=== PATIENT | male | born 1970 | race Caucasian/White ===

== ENCOUNTER 2018-02-25 08:56 | Emergency (ER) | payer BC, OTHER ==
[~2018-02-25] VITALS: Ht 182.9 cm; Wt 204.1 kg
[~2018-02-25 08:56] MED LIST: AMLO10TA PO; LISI-420 PO; ORE25 PO
[2018-02-25 08:59] VITALS: BP 132/98
[2018-02-25] MEDS ORDERED: TETRACAINE HCL/PF 0.5% OPTH 4 ML BTL OP ONE (09:10)
[2018-02-25] MEDS ORDERED: FLUORESCEIN OPTH STRIP 0.6 MG OP ONE (09:10)
--- NOTE | 2018-02-25 09:14 | NUR ---
PATIENT PRESENTS TO ED WITH OS C/O NEEDLE LIKE PAIN X THIS AM WITHOUT INJURY/TRAUMA . PT STATES . DENIES N/V/D; SKIN IS PINK/WARM/DRY; AAOX4 WITH EVEN AND STEADY GAIT; PATIENT STATES PAIN OF 6/10 AT THIS TIME; VSS; PATIENT POSITIONED FOR COMFORT; HOB ELEVATED; BEDRAILS UP X2; BED DOWN. ER MD MADE AWARE OF PT STATUS.
[2018-02-25] MEDS ORDERED: FLUORESCEIN OPTH STRIP 0.6 MG ONE (09:16)
--- NOTE | 2018-02-25 09:23 | NUR ---
TONOMETER AT BEDSIDE
[2018-02-25 09:53] VITALS: BP 128/92
--- NOTE | 2018-02-25 09:53 | NUR ---
Patient discharged with v/s stable. Written and verbal after care instructions given and explained. Patient verbalized understanding. Ambulatory with steady gait. All questions addressed prior to discharge. Pt. made appointment with Opthalmologist per Dr Mora.
== END 2018-02-25 09:53 | disposition home or self-care (01) ==
LOC: MED 08:56
DX: H15.002 Unspecified scleritis, left eye (principal); I10 Essential (primary) hypertension
CPT/HCPCS: 99282; 99283

== ENCOUNTER 2018-10-10 17:48 | Emergency (ER) | payer BC ==
[~2018-10-10] VITALS: Ht 182.9 cm; Wt 209.1 kg
[2018-10-10 17:59] VITALS: BP 154/111
--- NOTE | 2018-10-10 18:15 | NUR ---
BIB SELF. STATES HE HAS HAD NUMBNESS AND TINGLING IN HIS LET ARM FOR 1.5 HOURS. DENIES ANY OTHER SYMPTOMS. NEURO ASSESSMENT NORMAL. PATIENT ALERT AND ORIENTED, ANSWERING QUESTIONS APPROPRIATLY.
[2018-10-10 18:55] LABS: BASOPHILS % (AUTO) 0.5 % (0.0-2.0); EOSINOPHILS % (AUTO) 0.6 % (0.0-4.0); HEMATOCRIT 39.8 % (36-52); HEMOGLOBIN 12.7 g/dL (12.0-18.0); LYMPHOCYTES # (AUTO) 1.7 K/uL (2.0-11.5); LYMPHOCYTES % (AUTO) 22.8 % (20.5-51.1); MEAN CORPUSCULAR HEMOGLOBIN 25 pg (27-31); MEAN CORPUSCULAR HGB CONC 32 g/dL (33-37); MEAN CORPUSCULAR VOLUME 78.3 fL (80-94); MONOCYTES # (AUTO) 0.8 K/uL (0.8-1.0); MONOCYTES % (AUTO) 10.6 % (1.7-9.3); NEUTROPHILS # (AUTO) 4.8 K/uL (1.8-7.7); NEUTROPHILS % (AUTO) 65.5 % (42.2-75.2); PLATELET COUNT (AUTO) 165 K/uL (140-450); RED BLOOD CELL COUNT(AUTO) 5.08 MIL/uL (4.20-6.10); RED CELL DISTRIBUTION WIDTH 19.3 % (11.6-13.7); WHITE BLOOD COUNT (AUTO) 7.4 K/uL (4.8-10.8)
[2018-10-10 19:10] LABS: ANION GAP 11.4 (8-16); CARBON DIOXIDE 29.2 mmol/L (21-32); CREATININE 1.4 mg/dL (0.7-1.3); POTASSIUM 3.6 mmol/L (3.5-5.1)
--- NOTE | 2018-10-10 19:10 | NUR ---
ASSUMED CARE OF PT FROM TOMYM FLORES
[2018-10-10 19:15] LABS: ALBUMIN 3.5 g/dL (3.4-5.0); TOTAL BILIRUBIN 0.4 mg/dL (0.0-1.0)
--- NOTE | 2018-10-10 19:39 | NUR ---
Dr. Bowman evaluating patient at bedside.
[2018-10-10 20:16] VITALS: BP 154/111
--- NOTE | 2018-10-10 20:17 | NUR ---
Patient discharged with v/s stable. Written and verbal after care instructions given and explained. Patient verbalized understanding. Ambulatory with steady gait. All questions addressed prior to discharge. Advised to follow up with PMD. PT LEFT W OUT DISCHARGE INSTRUCTIONS
== END 2018-10-10 20:17 | disposition home or self-care (01) ==
LOC: MED 17:48
DX: M79.602 Pain in left arm (principal); R20.0 Anesthesia of skin; I10 Essential (primary) hypertension; Z98.890 Other specified postprocedural states; Z79.899 Other long term (current) drug therapy
CPT/HCPCS: 36415; 80053; 85025; 93005; 99284

== ENCOUNTER 2018-12-09 19:10 | Emergency (ER) | payer BC ==
[~2018-12-09] VITALS: Ht 182.9 cm; Wt 202.3 kg
[2018-12-09 19:11] VITALS: BP 181/127
--- NOTE | 2018-12-09 19:22 | NUR ---
PATIENT AMB TO BED 9.
--- NOTE | 2018-12-09 19:36 | NUR ---
BIB SELF WITH C/O PAIN IN LEFT LOWER LIMB. SCAB NOTED, WITH THIN YELLOW DISCHARGE. WARM TO TOUCH. STATES PAIN 10/10. STATES HE WAS DX WITH CELLULITIS AND FINISHED HIS ABX BUT CONTINUES TO HAVE PAIN. MINIMAL SWELLING.
--- NOTE | 2018-12-09 19:38 | NUR ---
DR CALL AT BEDSIDE.
[2018-12-09 20:03] VITALS: BP 168/98
--- NOTE | 2018-12-09 20:03 | NUR ---
Patient discharged with v/s stable. Written and verbal after care instructions given and explained. Patient alert, oriented and verbalized understanding of instructions. Ambulatory with steady gait. All questions addressed prior to discharge. ID band removed. Patient advised to follow up with PMD. Rx of BACTRIM, MOTRIN, TRAMADOL given. Patient educated on indication of medication including possible reaction and side effects. Opportunity to ask questions provided and answered.
== END 2018-12-09 20:03 | disposition home or self-care (01) ==
LOC: MED 19:10
DX: L03.116 Cellulitis of left lower limb (principal); I10 Essential (primary) hypertension; Z79.899 Other long term (current) drug therapy
CPT/HCPCS: 99283

== ENCOUNTER 2019-08-20 06:56 | Inpatient (IN) | payer BC ==
[~2019-08-20] VITALS: Ht 182.9 cm; Wt 92.5 kg
[2019-08-20 07:04] VITALS: BP 246/143
--- NOTE | 2019-08-20 07:04 | NUR ---
PT TAKEN TO BED 4
--- NOTE | 2019-08-20 07:10 | NUR ---
CHEST PAIN AND SOB FOR 3 DAYS, ON AND OFF, AND AT OOHOUR IT WAS WORST PAIN AT 10/10 NON RADIATING .PT AWAKE , ALERT ,AFEBRILE, AMBULATORY WITH STEADY GAIT. SCE ,CBS . DENIES N/V . PMHX HTN. MEDS TAKEN.
--- NOTE | 2019-08-20 07:15 | NUR ---
DR CALL AT BEDSIDE [id number] PT.
[2019-08-20] MEDS ORDERED: FUROSEMIDE 40 MG/4 ML VIAL IVP ONE (07:25)
[2019-08-20] MEDS ORDERED: NITROGLYCERIN 0.4 MG TAB SL ONE (07:25)
[2019-08-20] MEDS ORDERED: hydrALAZINE 20 MG/ML VIAL IVP ONE (07:25)
--- NOTE | 2019-08-20 07:30 | NUR ---
XRAY AT BEDSIDE.
--- NOTE | 2019-08-20 07:30 | NUR ---
EKG DUPLICATE ORDER WAS PLACED. VERIFIED WITH
--- NOTE | 2019-08-20 07:48 | NUR ---
DR CALL AT BEDSIDE.
[2019-08-20] MEDS ORDERED: KETOROLAC 15 MG/ML VIAL IVP ONE (07:55)
[2019-08-20 07:56] LABS: BASOPHILS # (AUTO) 0.1 K/uL (0.00-0.22); BASOPHILS % (AUTO) 0.8 % (0.0-2.0); EOSINOPHILS % (AUTO) 0.4 % (0.0-4.0); HEMATOCRIT 36.4 % (36-52); HEMOGLOBIN 11.5 g/dL (12.0-18.0); LYMPHOCYTES # (AUTO) 2.1 K/uL (2.0-11.5); LYMPHOCYTES % (AUTO) 20.9 % (20.5-51.1); MEAN CORPUSCULAR HEMOGLOBIN 25 pg (27-31); MEAN CORPUSCULAR HGB CONC 32 g/dL (33-37); MEAN CORPUSCULAR VOLUME 78.3 fL (80-94); MONOCYTES # (AUTO) 0.6 K/uL (0.8-1.0); MONOCYTES % (AUTO) 6.3 % (1.7-9.3); NEUTROPHILS # (AUTO) 7.3 K/uL (1.8-7.7); NEUTROPHILS % (AUTO) 71.6 % (42.2-75.2); PLATELET COUNT (AUTO) 158 K/uL (140-450); RED BLOOD CELL COUNT(AUTO) 4.65 MIL/uL (4.20-6.10); RED CELL DISTRIBUTION WIDTH 19.2 % (11.6-13.7); WHITE BLOOD COUNT (AUTO) 10.2 K/uL (4.8-10.8)
[2019-08-20] MEDS: FUROSEMIDE 40 MG/4 ML VIAL IVP SCH ×2 (08:00→12:00)
--- NOTE | 2019-08-20 08:20 | NUR ---
PATIENT REFUSED ABG KIRTI/RN NOTIFIED
--- NOTE | 2019-08-20 08:21 | NUR ---
PT REFUSED ABG. DR CALL AWARE.
[2019-08-20 08:22] LABS: ALBUMIN 3.1 g/dL (3.4-5.0); ANION GAP 8.1 (8-16); CARBON DIOXIDE 30.1 mmol/L (21-32); CREATININE 1.2 mg/dL (0.7-1.3); POTASSIUM 3.2 mmol/L (3.5-5.1); TOTAL BILIRUBIN 0.5 mg/dL (0.0-1.0)
--- NOTE | 2019-08-20 08:28 | NUR ---
PT WENT TO RESTROOM WITH AMBULATORY.
[2019-08-20] MEDS ORDERED: ASPIRIN 81 MG TAB.CHEW PO ONE (08:40)
[2019-08-20] MEDS ORDERED: METO50TE2 PO (09:06)
[2019-08-20] MEDS: NACL 0.9% 1,000 ML IV SCH (09:21)
[2019-08-20] MEDS ORDERED: KETOROLAC 30 MG/ML VIAL IVP PRN (09:25)
[2019-08-20] MEDS ORDERED: MORPHINE SULFATE 2 MG/ML SYR IVP PRN (09:25)
[2019-08-20] MEDS ORDERED: HYDROcodone/APAP 7.5/325 MG 1 TAB PO PRN (09:25)
[2019-08-20] MEDS ORDERED: ONDANSETRON 4 MG/2 ML VIAL IM/IVP PRN (09:25)
[2019-08-20] MEDS ORDERED: ACETAMINOPHEN 325 MG TAB PO PRN (09:25)
[2019-08-20] MEDS ORDERED: POTASSIUM CHLORIDE 10 MEQ TABER PO ONE (09:30)
[2019-08-20] MEDS ORDERED: NITROGLYCERIN 0.4 MG TAB SL PRN (10:00)
[2019-08-20] MEDS ORDERED: ALBUTEROL SULFATE/IPRATROPIU 3 ML SOL IH PRN (10:00)
--- NOTE | 2019-08-20 10:00 | NUR ---
Patient will be admitted to care of DR DELGADO. Admited to tele. Will go to room 111b. Belongings list completed. Report to jose ureña.
[2019-08-20] MEDS ORDERED: POTASSIUM CHLORIDE 10 MEQ TABER PO SCH (10:10)
--- NOTE | 2019-08-20 10:18 | NUR ---
RECEIVED PATIENT FROM ER NURSE. PATIENT IS FULL CODE, NKA. AAOX4, AMBULATORY. IV TO LEFT AC 20G. PATIENT IS ON NASAL CANNULA 3L. NO COMPLAINTS OF PAIN AT THIS TIME. DR HERNANDEZ AT BEDSIDE. WILL REVIEW AND CONTINUE WITH PLAN OF CARE FOR THE DAY.
[2019-08-20] MEDS ORDERED: ENALAPRILAT 2.5 MG/2 ML VIAL IVP PRN (10:25)
[2019-08-20] MEDS ORDERED: HYDR-3233 PO (10:31)
[2019-08-20] MEDS ORDERED: METO-747 PO (10:31)
[2019-08-20] MEDS ORDERED: CHLO25TA33 PO (10:31)
[2019-08-20] MEDS ORDERED: VALS320T2 PO (10:31)
[2019-08-20] MEDS ORDERED: PRED20TA5 PO (10:43)
[2019-08-20] MEDS ORDERED: VALSARTAN 80 MG TAB PO SCH ×2 (10:45→11:17)
[2019-08-20] MEDS ORDERED: METOPROLOL SUCCINATE 50 MG TABER PO SCH ×2 (10:45→11:18)
[2019-08-20] MEDS ORDERED: HEPARIN PER PHARMACY MC PRN (10:45)
[2019-08-20 10:57] LABS: APPEARANCE,URINE CLEAR (CLEAR); BILIRUBIN,URINE NEGATIVE (NEGATIVE); BLOOD, URINE NEGATIVE (NEGATIVE); COLOR,URINE YELLOW (YELLOW); LEUKOCYTE ESTERASE ,URINE NEGATIVE (NEGATIVE); NITRITE, URINE NEGATIVE (NEGATIVE); PH,URINE 6.5 (5.0-9.0); UGLUCOSE NEGATIVE (NEGATIVE)
[2019-08-20 11:03] LABS: BARBITURATE, URINE NEG. ng/ml (NEG <=200); BENZODIAZEPINE, URINE NEG. ng/mL (NEG <=200); CANNABINOID, URINE NEG. ng/mL (NEG <=50); COCAINE, URINE NEG. ng/mL (NEG <=300); OPIATE, URINE NEG. ng/mL (NEG <=2000); PHENCYCLIDINE SCREEN,URINE NEG. ng/mL (NEG <=25)
[2019-08-20] MEDS ORDERED: LORazepam 1 MG TAB PO PRN (11:25)
[2019-08-20 11:27] LABS: RBC,URINE 0-5 /HPF (0-5); WBC,URINE 0-5 /HPF (0-5)
[2019-08-20] MEDS: CHLORTHALIDONE 25MG PO SCH (11:32)
--- NOTE | 2019-08-20 11:32 | NUR ---
ADMINISTERED BLOOD PRESSURE MEDICATION AND KDURR 20 MEQ. PATIENT TOLERATED WELL.
[2019-08-20 11:41] LABS: CHOL/HDL RATIO 2.2 (1-4.5); FREE T4 (FREE THYROXINE) 0.95 ng/dL (0.76-1.46); MAGNESIUM 1.7 mg/dL (1.8-2.4); PHOSPHORUS 3.7 mg/dL (2.5-4.9)
[2019-08-20 11:42] LABS: THYROID STIMULATING HORMONE 5.25 uIU/mL (0.34-3.74)
[2019-08-20] MEDS ORDERED: MULTIVITAMIN-12 10 ML, THIAMINE 100 MG, MAGNESIUM SULFATE 50% 2,000 MG, FOLIC ACID 1 MG... IV SCH ×5 (12:00)
[2019-08-20] MEDS: hydrALAZINE 10 MG TAB PO SCH ×2 (13:11→16:22)
--- NOTE | 2019-08-20 13:15 | NUR ---
BEGAN HEPARIN INFUSION WITH LEX ESTES. GAVE INITIAL BOLUS OF 7500U. PTT TO BE DRAWN AT 1915.
[2019-08-20] MEDS: hePARIN / DEXT 5% PREMIX 250 ML IV SCH ×2 (13:16→20:43)
--- NOTE | 2019-08-20 14:52 | NUR ---
PATIENT RESTING QUIETLY IN BED. HEPARIN INFUSING. NO COMPLAINTS AT THIS TIME
--- NOTE | 2019-08-20 15:12 | NUR ---
PATIENT HAS NEW IV TO LEFT HAND 22G.
[2019-08-20] MEDS ORDERED: MAGNESIUM OXIDE 400 MG TAB PO SCH (15:18)
--- NOTE | 2019-08-20 15:38 | NUR ---
DISCHARGE PLANNIN48 Y/O MALE PATIENT FROM HOME, WHO CAME IN DUE TO CHEST PAIN. PAST MEDICAL HISTORY INCLUDE HTN AND OBESITY. INITIAL DIAGNOSIS OF NSTEMI. CURRENT LABS INCLUDE WBC 10.2, H/H 11.5/36.4, NA/K 139/3.2, TROP 0.081, BNP 308, AST/ALT 55/83. MRSA NARES PENDING. CARDIO CONSULT WITH Norman MCKEON FOR NSTEMI. NEGATIVE HEAD CT ON ADMISSION. DC PLAN TO HOME ONCE STABLE. Addendum: 08/21/19 at 1159 by Sena Aguayo DC PLANNING: SEEN BY DR LINDA Wagner ORDERED ECHO, SERIAL TROPONIN TRENDING AND EKG, HEPARIN DRIP DISCONTINUED AND SUBQ BID . BP STILL UNCONTROLLED CONTINUE IV VASOTEC 5MG EVERY 4 HRS. DC PLAN TO GO HOME WHEN STABLE. Addendum: 08/21/19 at 1608 by Marily Bello RECEIVED A CALL FROM BESSY YATES REVIEW NURSE FROM [facility], STATING THAT WE ARE A NON CONTRACTED FACILITY AND IS REQUESTING TO INFORM THE PATIENT REGARDING THIS. SHE ALSO STATED THAT IF PATIENT NEEDS IS STABLE, PATIENT NEEDS TO BE TRANSFERRED TO A CONTRACTED FACILITY, IF NOT WE CAN SEND CLINICALS FOR THEM TO REVIEW. SHE ALSO PROVIDED ME WITH HER PHONE NUMBER [phone] FOR ANY QUESTIONS. JU CARSON MADE AWARE.
--- NOTE | 2019-08-20 15:42 | NUR ---
PT IS SITTING UP IN CHAIR AT BEDSIDE. PATIENT AWARE OF STRICT I&O. URINAL AT BEDSIDE AND INSTRUCTED PATIENT TO USE IT.
[2019-08-20] MEDS ORDERED: FUROSEMIDE 40 MG/4 ML VIAL IVP SCH (15:55)
[2019-08-20 16:00] VITALS: BP 134/87
[2019-08-20] MEDS ORDERED: MAG SULF 2000 MG/WATER PREMIX 50 ML IV SCH (16:00)
--- NOTE | 2019-08-20 16:26 | NUR ---
ADMINISTERED PM MEDICATION ALONG WITH ATIVAN D/T PATIENT C/O OF FEELING ANXIOUS AND BEING SCARED TO FALL ASLEEP.
--- NOTE | 2019-08-20 19:10 | NUR ---
RECEIVED PATIENT FROM AM SHIFT NURSE DALIA IN STABLE CONDITION. TELE PATIENT SITTING IN BED. IV FLUIDS INFUSING WELL. NO C/O PAIN. NO S/SX ACUTE DISTRESS NOTED. CALL LIGHT WITHIN REACH. WILL CONTINUE TO MONITOR.
[2019-08-20] MEDS: ENALAPRILAT 2.5 MG/2 ML VIAL IVP PRN (19:57)
--- NOTE | 2019-08-20 19:57 | NUR ---
PATIENT'S BP 151/97 HR 77. MEDICATED WITH PRN ENALAPRIL. NO C/O PAIN. PATIENT RESTING IN BED COMFORTABLY. WILL CONTINUE TO MONITOR.
[2019-08-20 20:00] VITALS: BP 151/97
--- NOTE | 2019-08-20 20:43 | NUR ---
PATIENT NEW RESULT PTT 30. FOLLOWED HEPARIN PROTOCOL. BOLUS PATIENT 7500 [place] [address] UNITS [place] 20 ML/HR. NO S/SX ACUTE DISTRESS. NO C/O PAIN. NEXT PTT SCHEDULED AT 0243. CALL LIGHT WITHIN REACH. WILL CONTINUE TO MONITOR.
--- NOTE | 2019-08-20 20:57 | NUR ---
REASSESSED BP 145/83 HR 77. NO C/O PAIN. NO S/SX ACUTE DISTRESS. CALL LIGHT WITHIN REACH. WILL CONTINUE TO MONITOR.
--- NOTE | 2019-08-20 22:50 | NUR ---
MADE ROUNDS. PATIENT ASLEEP. NO C/O PAIN. NO S/SX ACUTE DISTRESS. CALL LIGHT WITHIN REACH .WILL CONTINUE TO MONITOR.
[2019-08-21] VITALS (7 sets, daily range): BP systolic 126–167; BP diastolic 69–188
--- NOTE | 2019-08-21 00:57 | NUR ---
PATIENT CONTINUES IN STABLE CONDITION. ASLEEP, NO C/O PAIN. NO S/SX ACUTE DISTRESS. CALL LIGHT WITHIN REACH. WILL CONTINUE TO MONITOR.
--- NOTE | 2019-08-21 02:19 | NUR ---
MADE ROUNDS. PATIENT IN STABLE CONDITION. NO C/O PAIN. NO S/SX ACUTE DISTRESS. CALL LIGHT WITHIN REACH. WILL CONTINUE TO MONITOR.
--- NOTE | 2019-08-21 02:46 | NUR ---
PATIENT REFUSED PTT LAB DRAW X2. RISKS AND BENEFITS EXPLAINED. MD NOTIFIED. WILL ATTEMPT AGAIN AT 0500. CALL LIGHT WITHIN REACH. WILL CONTINUE TO MONITOR.
[2019-08-21] MEDS: hePARIN / DEXT 5% PREMIX 250 ML IV SCH ×2 (03:59→08:15)
--- NOTE | 2019-08-21 04:20 | NUR ---
MADE ROUNDS. PATIENT ASLEEP. CONTINUES IN STABLE CONDITION. NO S/SX ACUTE DISTRESS. HEPARIN INFUSING WELL. CALL LIGHT WITHIN REACH. WILL CONTINUE TO MONITOR.
[2019-08-21] MEDS: ENALAPRILAT 2.5 MG/2 ML VIAL IVP PRN (05:04)
--- NOTE | 2019-08-21 05:10 | NUR ---
PATIENT'S BP 163/108 HR 76. MEDICATED WITH PRN ENALAPRIL. NO C/O PAIN. PATIENT RESTING IN BED COMFORTABLY. WILL CONTINUE TO MONITOR.
--- NOTE | 2019-08-21 05:27 | NUR ---
LEFT HAND IV INFILTRATED. D/C WITH NO ACTIVE BLEEDING. IV CATHETER INTACT. REINSERTED IV TO LEFT WRIST 24G WITH GOOD BLOOD RETURN. NO S/SX DISTRESS. CALL LIGHT WITHIN REACH. WILL CONTINUE TO MONITOR.
--- NOTE | 2019-08-21 06:04 | NUR ---
REASSESSED BP 140/104 HR 76. PATIENT STATED IT WAS HIS BASELINE. MD MADE AWARE. NO S/SX ACUTE DISTRESS. NO C/O PAIN. CALL LIGHT WITHIN REACH. WILL CONTINUE TO MONITOR.
--- NOTE | 2019-08-21 07:00 | NUR ---
RECEIVED REPORT FROM MANAGER [employer] NURSE. PATIENT IS SLEEPING, VISIBLE CHEST RISE AND FALL. PATIENTS HEPARIN DRIP IS NOW INFUSING AT 20U/HR. FULL CODE, NKA. PATIENT REFUSED MORNING VITALS. WILL REVIEW AND CONTINUE WITH PLAN OF CARE FOR THE DAY.
[2019-08-21 07:09] LABS: ANION GAP 10.1 (8-16); BASOPHILS # (AUTO) 0.1 K/uL (0.00-0.22); BASOPHILS % (AUTO) 0.6 % (0.0-2.0); CARBON DIOXIDE 29.1 mmol/L (21-32); CREATININE 1.5 mg/dL (0.7-1.3); EOSINOPHILS # (AUTO) 0.1 K/uL (0-0.4); EOSINOPHILS % (AUTO) 0.9 % (0.0-4.0); HEMATOCRIT 38.1 % (36-52); HEMOGLOBIN 11.7 g/dL (12.0-18.0); LYMPHOCYTES # (AUTO) 2.3 K/uL (2.0-11.5); LYMPHOCYTES % (AUTO) 23.8 % (20.5-51.1); MEAN CORPUSCULAR HEMOGLOBIN 25 pg (27-31); MEAN CORPUSCULAR HGB CONC 31 g/dL (33-37); MEAN CORPUSCULAR VOLUME 79.4 fL (80-94); MONOCYTES # (AUTO) 0.6 K/uL (0.8-1.0); MONOCYTES % (AUTO) 6.4 % (1.7-9.3); NEUTROPHILS # (AUTO) 6.6 K/uL (1.8-7.7); NEUTROPHILS % (AUTO) 68.3 % (42.2-75.2); PLATELET COUNT (AUTO) 156 K/uL (140-450); POTASSIUM 3.2 mmol/L (3.5-5.1); RED BLOOD CELL COUNT(AUTO) 4.79 MIL/uL (4.20-6.10); RED CELL DISTRIBUTION WIDTH 19.5 % (11.6-13.7); WHITE BLOOD COUNT (AUTO) 9.7 K/uL (4.8-10.8)
[2019-08-21 07:17] LABS: CHOL/HDL RATIO 1.9 (1-4.5)
--- NOTE | 2019-08-21 07:22 | NUR ---
ENDORSED PATIENT IN STABLE CONDITION TO AM SHIFT NURSE.
[2019-08-21 08:07] LABS: FOLIC ACID 17.2 ng/mL (>3.0)
--- NOTE | 2019-08-21 08:15 | NUR ---
ADJUSTED HEPARIN DRIP WITH CHARGE NURSE ANGELA PER PROTOCOL FOR PTT 36.9. HEPARIN DRIP NOW INFUSING AT 22.5U/HR WITH A 3800U BOLUS. ADMINISTERED MORNING MEDICATION PO. PATIENT TOLERATED WELL
--- NOTE | 2019-08-21 08:17 | NUR ---
PATIENT HAS BEEN SCREENED AND CATEGORIZED MODERATE NUTRITION RISK. PATIENT WILL BE SEEN WITHIN 3-5 DAYS OF ADMISSION. 08/23/19 08/25/[address]
[2019-08-21] MEDS: FOLIC ACID 1 MG TAB PO SCH (08:21)
[2019-08-21] MEDS: THIAMINE 100 MG TAB PO SCH (08:21)
[2019-08-21] MEDS: FUROSEMIDE 40 MG/4 ML VIAL IVP SCH (08:22)
[2019-08-21] MEDS: ASPIRIN 81 MG TAB.CHEW PO SCH (08:22)
[2019-08-21] MEDS: MULTIVITAMIN 1 TAB PO SCH (08:23)
[2019-08-21] MEDS: VALSARTAN 80 MG TAB PO SCH (08:23)
[2019-08-21] MEDS: METOPROLOL SUCCINATE 50 MG TABER PO SCH (08:24)
[2019-08-21] MEDS: hydrALAZINE 10 MG TAB PO SCH (08:25)
--- NOTE | 2019-08-21 08:30 | NUR ---
RECEIVED CRITICAL LAB VALUE OF TROPONIN 0.077. REPORTED VALUE TO DR OTERO. NO CHANGE IN ORDERS.
[2019-08-21] MEDS: CHLORTHALIDONE 25MG PO SCH (08:34)
[2019-08-21] MEDS: NACL 0.9% 1,000 ML IV SCH (08:35)
[2019-08-21] MEDS ORDERED: FUROSEMIDE 40 MG/4 ML VIAL IVP SCH (09:00)
--- NOTE | 2019-08-21 09:49 | NUR ---
DISCONTINUED HEPARIN DRIP PER DR ORDER.
[2019-08-21] MEDS ORDERED: LORazepam 2 MG/ML VIAL IVP PRN (10:40)
[2019-08-21] MEDS ORDERED: hydrALAZINE 25 MG TAB PO SCH (11:40)
[2019-08-21] MEDS ORDERED: POTASSIUM CHLORIDE 10 MEQ TABER PO SCH (12:00)
--- NOTE | 2019-08-21 12:34 | NUR ---
TAPED PATIENTS IV SITE WITH PLASTIC SO PATIENT CAN SHOWER PER DR OTERO.
[2019-08-21] MEDS: hydrALAZINE 25 MG TAB PO SCH ×3 (13:35→20:30)
--- NOTE | 2019-08-21 13:35 | NUR ---
PATIENT IS BACK FROM SHOWER AND IS SITTING UP IN CHAIR AT BEDSIDE. IS THERE, NO COMPLAINTS AT THIS TIME.
--- NOTE | 2019-08-21 19:15 | NUR ---
RECEIVED PATIENT FROM AM SHIFT IN STABLE CONDITION. TELE PATIENT. SITTING IN CHAIR WITH FAMILY AT BEDSIDE. RESPIRATIONS EVEN. UNLABORED. SKIN WARM, DRY TO TOUCH. NO C/O PAIN. NO S/SX ACUTE DISTRESS. IV SITE TO LEFT WRIST PATENT/INTACT, INFUSING FLUIDS WELL. CALL LIGHT WITHIN REACH. WILL CONTINUE TO MONITOR.
--- NOTE | 2019-08-21 21:27 | NUR ---
PLACED PATIENT ON CPAP OF 5CM WITH LARGE MASK AND 25% FIO2. PATIENT WILL TRY TO WEAR MASK AT NIGHT FOR SLEEP APNEA
--- NOTE | 2019-08-21 21:52 | NUR ---
PATIENT TOOK OFF CPAP MASK. PATIENT STATES IT MAKES HIM FEEL CLAUSTROPHOBIC. HE DOES NOT WANT TO WEAR IT
[2019-08-22] MEDS: ENALAPRILAT 2.5 MG/2 ML VIAL IVP PRN ×2 (00:02→05:39)
--- NOTE | 2019-08-22 00:02 | NUR ---
BLOOD PRESSURE ELEVATED 161/101,HR-86 . VASOTEC IVP PRN GIVEN ORDERED. WILL CONTINUE TO MONITOR.
--- NOTE | 2019-08-22 01:02 | NUR ---
BP RECHECKED RESULT 139/90,HR-85. PT ASLEEP. NO S/S OF ANY DISCOMFORT NOTED.
--- NOTE | 2019-08-22 02:57 | NUR ---
PT AWAKE. SITTING ON THE SIDE OF THE BED. N/O C/O ANY DISCOMFORT NOTED. HAD SOME APPLE JUICE .
[2019-08-22 04:00] VITALS: BP 165/104
--- NOTE | 2019-08-22 04:00 | NUR ---
PT AWAKE. NO C/O ANY DISCOMFORT NOTED.
--- NOTE | 2019-08-22 05:39 | NUR ---
ELEVATED BLOOD PRESSURE 154/106 HR 84. MEDICATED WITH PRN ENALAPRIL. PATIENT VERBALIZED NO DISCOMFORT AT THIS TIME. CALL LIGHT WITHIN REACH. WILL CONTINUE TO MONITOR.
--- NOTE | 2019-08-22 06:39 | NUR ---
REASSESSED BLOOD PRESSURE AT 154/113 HR 77. MADE AWARE OF INEFFECTIVENESS OF PRN VASOTEC. DR OTERO MADE AWARE WITH ORDER TO ADMINISTER HYDRALAZINE EARLY.
[2019-08-22] MEDS: hydrALAZINE 25 MG TAB PO SCH (06:49)
--- NOTE | 2019-08-22 07:09 | NUR ---
ENDORSED PATIENT IN STABLE CONDITION TO AM SHIFT NURSE.
[2019-08-22 07:15] LABS: ANION GAP 9.8 (8-16); CARBON DIOXIDE 30.9 mmol/L (21-32); CREATININE 1.5 mg/dL (0.7-1.3); POTASSIUM 3.7 mmol/L (3.5-5.1)
--- NOTE | 2019-08-22 07:15 | NUR ---
RECEIVED REPORT FROM CONFERENCE CENTER MANAGER NURSE FOR CONTINUITY OF CARE. PT IN STABLE CONDITION. RESPIRATIONS EVEN AND UNLABORED. IV INTACT AND PATENT. SAFETY MEASURES IN PLACE. BED IN LOW POSITION. CALL LIGHT AT BEDSIDE. WILL CONTINUE TO MONITOR.
[2019-08-22 07:21] LABS: MAGNESIUM 2.2 mg/dL (1.8-2.4)
[2019-08-22 07:24] LABS: BASOPHILS % (AUTO) 0.5 % (0.0-2.0); EOSINOPHILS # (AUTO) 0.1 K/uL (0-0.4); EOSINOPHILS % (AUTO) 0.9 % (0.0-4.0); HEMATOCRIT 35.9 % (36-52); HEMOGLOBIN 11.2 g/dL (12.0-18.0); LYMPHOCYTES # (AUTO) 1.6 K/uL (2.0-11.5); LYMPHOCYTES % (AUTO) 18.2 % (20.5-51.1); MEAN CORPUSCULAR HEMOGLOBIN 25 pg (27-31); MEAN CORPUSCULAR HGB CONC 31 g/dL (33-37); MEAN CORPUSCULAR VOLUME 79.3 fL (80-94); MONOCYTES # (AUTO) 0.8 K/uL (0.8-1.0); NEUTROPHILS # (AUTO) 6.2 K/uL (1.8-7.7); NEUTROPHILS % (AUTO) 71.4 % (42.2-75.2); PLATELET COUNT (AUTO) 171 K/uL (140-450); RED BLOOD CELL COUNT(AUTO) 4.52 MIL/uL (4.20-6.10); RED CELL DISTRIBUTION WIDTH 19.6 % (11.6-13.7); WHITE BLOOD COUNT (AUTO) 8.6 K/uL (4.8-10.8)
[2019-08-22 08:00] VITALS: BP 145/90
[2019-08-22] MEDS ORDERED: FERROUS GLUCONATE 324 MG TAB PO SCH (08:00)
--- NOTE | 2019-08-22 08:30 | NUR ---
PT STATED THAT HE HAS AN APPOINTMENT WITH CARDIAC DOCTOR AT [address] OTERO AWARE.
[2019-08-22] MEDS: VALSARTAN 80 MG TAB PO SCH (08:48)
[2019-08-22] MEDS: MULTIVITAMIN 1 TAB PO SCH (08:49)
[2019-08-22] MEDS: METOPROLOL SUCCINATE 50 MG TABER PO SCH (08:49)
[2019-08-22] MEDS: THIAMINE 100 MG TAB PO SCH (08:50)
[2019-08-22] MEDS: FOLIC ACID 1 MG TAB PO SCH (08:50)
[2019-08-22] MEDS: ASPIRIN 81 MG TAB.CHEW PO SCH (08:54)
[2019-08-22] MEDS ORDERED: FUROSEMIDE 20 MG TAB PO SCH (09:00)
[2019-08-22] MEDS ORDERED: ASCORBIC ACID 500 MG TAB PO SCH (09:00)
--- NOTE | 2019-08-22 09:00 | NUR ---
PT SIGNED AMA FORM AT THIS TIME.
[2019-08-22] MEDS ORDERED: ASPI81CT95 PO (09:11)
[2019-08-22] MEDS ORDERED: CHLO50TA33 PO (09:11)
[2019-08-22] MEDS ORDERED: METO50TE2 PO (09:11)
[2019-08-22] MEDS ORDERED: CLON0.1T42 PO (09:11)
[2019-08-22] MEDS ORDERED: HYDR-4420 PO (09:11)
[2019-08-22] MEDS ORDERED: VALS80TA2 PO (09:11)
--- NOTE | 2019-08-22 09:15 | NUR ---
PT WAS WHEELED TO LOBBY WITH ALL BELONGINGS, WHERE FAMILY WAS WAITING WITH VEHICLE. PT IN STABLE CONDITION.
[2019-08-22] MEDS ORDERED: SODIUM FERRIC GLUCONATE 125 MG in NACL 0.9% 100 ML IV SCH (11:50)
[2019-08-22] MEDS ORDERED: cloNIDine 0.1 MG TAB PO SCH (13:00)
[2019-08-22] MEDS ORDERED: VALS320T2 PO (13:27)
[2019-08-22] MEDS ORDERED: METO200T PO (13:27)
[2019-08-22] MEDS ORDERED: HYDR-734 PO (13:28)
== END 2019-08-22 09:25 | disposition left against medical advice (07) | DRG 280 ==
LOC: MED 06:56 → MTU 09:21
PROVIDERS: ADMIT General Practice; ATTEND General Practice
DX: I21.A1 Myocardial infarction type 2 (principal); I50.43 Acute on chronic combined systolic (congestive) and diastolic (congestive) heart failure; E43 Unspecified severe protein-calorie malnutrition; J96.00 Acute respiratory failure, unspecified whether with hypoxia or hypercapnia; N17.0 Acute kidney failure with tubular necrosis; I16.1 Hypertensive emergency; I16.9 Hypertensive crisis, unspecified; I43 Cardiomyopathy in diseases classified elsewhere; E66.01 Morbid (severe) obesity due to excess calories; I11.0 Hypertensive heart disease with heart failure; E87.6 Hypokalemia; D50.9 Iron deficiency anemia, unspecified; E78.5 Hyperlipidemia, unspecified; G47.33 Obstructive sleep apnea (adult) (pediatric); Z53.29 Procedure and treatment not carried out because of patient's decision for other reasons; F10.20 Alcohol dependence, uncomplicated; E83.42 Hypomagnesemia; E87.8 Other disorders of electrolyte and fluid balance, not elsewhere classified; E02 Subclinical iodine-deficiency hypothyroidism; H20.10 Chronic iridocyclitis, unspecified eye; Z68.27 Body mass index [BMI] 27.0-27.9, adult; Z87.891 Personal history of nicotine dependence; Z79.899 Other long term (current) drug therapy; Z91.19 Patient's noncompliance with other medical treatment and regimen
CPT/HCPCS: 36415; 70450; 71045; 80048; 80053; 80305; 81001; 82607; 82728; 82746; 83036; 83540; 83605; 83690; 83735; 83880; 84100; 84439; 84443; 84484; 85025; 85045; 85610; 85730; 87081; 93005; 96374; 96375; 99285; A9153; J0360; J1644; J1885; J1940; J2060; J3411; J3475; J3490; J7030; Q0092

== ENCOUNTER 2021-03-01 11:01 | Emergency (ER) | payer BC ==
[~2021-03-01] VITALS: Ht 182.9 cm; Wt 207.7 kg
[~2021-03-01 11:01] MED LIST changes: -AMLO10TA PO; +ASPI81CT95 PO; +CHLO50TA33 PO; +CLON0.1T42 PO; +HYDR-734 PO; -LISI-420 PO; +METO200T PO; -ORE25 PO; +PRED20TA5 PO; +VALS320T2 PO
[2021-03-01 11:15] VITALS: BP 128/94
[2021-03-01 11:27] VITALS: BP 128/94
== END 2021-03-01 11:27 | disposition home or self-care (01) ==
LOC: MED 11:01
DX: E65 Localized adiposity (principal); R19.00 Intra-abdominal and pelvic swelling, mass and lump, unspecified site; I10 Essential (primary) hypertension; Z79.899 Other long term (current) drug therapy
CPT/HCPCS: 99284

== ENCOUNTER 2022-10-18 22:24 | Emergency (ER) | payer BC ==
[~2022-10-18] VITALS: Ht 182.9 cm; Wt 158.8 kg
[2022-10-18 22:30] VITALS: BP 127/82
--- NOTE | 2022-10-18 22:33 | NUR ---
TO LOBBY A/W BED AMBULATORY
--- NOTE | 2022-10-19 00:50 | NUR ---
PATIENT LEFT WITHOUT BEING SEEN BY DR. MARTÍNEZ. NO FURTHER CARE PROVIDED FOR PATIENT.
== END 2022-10-19 00:50 | disposition left against medical advice (07) ==
LOC: MED 22:24
DX: I10 Essential (primary) hypertension (principal); Z53.21 Procedure and treatment not carried out due to patient leaving prior to being seen by health care provider
CPT/HCPCS: 99281